=== PATIENT | female | born 1940 | race Caucasian/White ===

== ENCOUNTER 2023-06-10 11:41 | Emergency (ER) | payer BC, MEDICARE ==
[~2023-06-10] VITALS: Ht 157.5 cm; Wt 79.5 kg
[~2023-06-10 11:41] MED LIST: ASPI-1265 PO; CRAN200C PO; CYAN1TAB41 PO; FLAX100031 PO; LISI-230 PO; MELA1TAB73 PO; METO-539 PO; OMEG1CAP54 PO
[2023-06-10 12:54] LABS: BASOPHILS # (AUTO) 0.1 X10'3 (0-0.2); BASOPHILS % (AUTO) 1.2 % (0-1); EOSINOPHILS # (AUTO) 0.2 X10'3 (0-0.9); EOSINOPHILS % (AUTO) 2.4 % (0-6); HEMATOCRIT 32.5 % (35.0-45.0); HEMOGLOBIN 10.6 g/dl (12.0-16.0); LYMPHOCYTES # (AUTO) 2.1 X10'3 (1.1-4.8); LYMPHOCYTES % (AUTO) 27.4 % (21-51); MEAN CORPUSCULAR HEMOGLOBIN 28.8 PG (27.0-31.0); MEAN CORPUSCULAR HGB CONC 32.7 g/dL (33.0-36.5); MEAN CORPUSCULAR VOLUME 88.2 FL (78-98); MEAN PLATELET VOLUME 9.1 FL (7.4-10.4); MONOCYTES # (AUTO) 1.1 X10'3 (0-0.9); MONOCYTES % (AUTO) 14.3 % (2-12); NEUTROPHILS # (AUTO) 4.3 X10'3 (1.8-7.7); NEUTROPHILS % (AUTO) 54.7 % (42-75); PLATELET COUNT 258 X10'3 (140-440); RED BLOOD COUNT 3.69 X10'6 (4.20-5.60); RED CELL DISTRIBUTION WIDTH 14.1 % (11.5-14.5); WHITE BLOOD COUNT 7.8 X10'3 (4.5-11.0)
[2023-06-10 13:16] LABS: ALANINE AMINOTRANSFERASE 25 U/L (12-78); ALBUMIN 3.8 G/DL (3.4-5.0); ALBUMIN/GLOBULIN RATIO 1.2 (1.1-1.5); ALKALINE PHOSPHATASE 52 IU/L (46-116); AMYLASE 70 U/L (25-115); ANION GAP 10 (8-16); ASPARTATE AMINO TRANSFERASE 26 U/L (10-37); BILIRUBIN,TOTAL 0.4 MG/DL (0.1-1.0); BLOOD UREA NITROGEN 31 MG/DL (7-18); BUN/CREATININE RATIO 21.2 (10.0-20.0); CALCIUM 9.4 MG/DL (8.5-10.1); CHLORIDE 104 MMOL/L (99-107); CREATININE 1.46 MG/DL (0.40-0.90); GLUCOSE 106 MG/DL (70-104); LIPASE 46 U/L (16-77); POTASSIUM 4.2 MMOL/L (3.5-5.1); SODIUM 141 MMOL/L (135-145); TOTAL CARBON DIOXIDE 26.8 MMOL/L (24-32); eCRCL 24 ML/MIN; eGFR 34 ML/MIN
[2023-06-10 15:16] VITALS: BP 166/72; PULSE 78; RESP 16; TEMP 98; O2SAT 97
[2023-06-10 15:56] LABS: BILIRUBIN,URINE NEGATIVE (Neg); CLARITY,URINE SLIGHTLY CLOUDY (Clear); COLOR,URINE YELLOW (Yellow); GLUCOSE, URINE NEGATIVE (Neg); KETONES,URINE NEGATIVE (Neg); LEUKOCYTE ESTERASE ,URINE SMALL (Neg); NITRITES, URINE NEGATIVE (Neg); OCCULT BLOOD,URINE NEGATIVE (Neg); PH,URINE 5.5 (4.8-8.0); PROTEIN,URINE NEGATIVE (Neg); UROBILINOGEN,URINE 0.2 E.U/dL (0.2-1.0)
[2023-06-10 16:00] LABS: UA COLLECTION TYPE CLN CATCH MIDSTREAM
[2023-06-10 16:01] LABS: SQUAMOUS EPITHELIAL CELL,UR MANY /LPF (FEW)
[2023-06-10] MEDS ORDERED: OMEP40CA21 PO (16:05)
[2023-06-10 16:06] LABS: BACTERIA,URINE 1+ /HPF (Neg); RBC,URINE NONE SEEN /HPF (0-2)
[2023-06-10] MEDS: LIDOcaine 2% Viscous 15ml cup MM ONE (16:11)
[2023-06-10] MEDS: mag hydrox/Alum hydrox/simeth 30ml oral suspension PO ONE (16:11)
== END 2023-06-10 16:14 | disposition home or self-care (01) ==
LOC: ER 11:42
DX: R10.13 Epigastric pain (principal); E78.00 Pure hypercholesterolemia, unspecified; I10 Essential (primary) hypertension; Z90.49 Acquired absence of other specified parts of digestive tract; Z88.2 Allergy status to sulfonamides
CPT/HCPCS: 36415; 76700; 80053; 81001; 82150; 83690; 85025; 99284

== ENCOUNTER 2024-12-26 01:17 | Observation (INO) | payer BC ==
[2024-12-26] VITALS (11 sets, daily range): BP systolic 105–186; BP diastolic 50–90; PULSE 58–86; RESP 15–16; TEMP 97.8–98.4; O2SAT 93–96
[~2024-12-26] VITALS: Ht 157.5 cm; Wt 79.7 kg
[~2024-12-26 01:17] MED LIST changes: +ASCO500T19 PO; +BENA1TAB19 PO; +EZET10TA80 PO; +HYDR25TA90 PO; +SIMV-42 PO; +UBID100C16 PO; +diltiazem-NS 100mg/100ml 100 ML IV SCH
[2024-12-26] MEDS: diltiazem 5mg/ml 5ml inj. IV ONE ×2 (01:25→02:07)
--- NOTE | 2024-12-26 01:33 | ELECTROCARDIOGRAPH REPORT ---
[facility] Test Date: 2024-12-26 Test Time: 01:29:40 Pat Name: DICKSON ROSAS Department: [facility] Patient ID: [facility]-[id number] Room: [place] [address] Gender: F Community Life Director: : 1940 Requested By: LISA MCLEAN Order Number: [id number] Reading MD: Dr. Gordon Brennan Measurements Intervals [place] Rate: 122 P: -90 AK: 139 QRS: -38 QRSD: 91 T: 0 QT: 333 QTc: 475 Interpretive Statements Ectopic atrial tachycardia, unifocal Left axis deviation Repol abnrm suggests ischemia, diffuse leads Baseline wander in lead(s) V2 Electronically Signed On 12-28-2024 20:44:[address] Gordon Brennan Please click the below link to view image of tracing.
[2024-12-26 01:49] LABS: MEAN PLATELET VOLUME 9.0 FL (7.4-10.4); RED CELL DISTRIBUTION WIDTH 13.4 % (11.5-14.5)
--- NOTE | 2024-12-26 01:50 | RADIOLOGY REPORT ---
CHEST RADIOGRAPH Indication: CP Technique: Single frontal view of the chest was obtained COMPARISON: None FINDINGS: Lines and Tubes: None Lungs: Clear Pleura: No pleural effusion or pneumothorax. Cardiomediastinal contours: Unremarkable Bones: Prior right total shoulder arthroplasty IMPRESSION: No cardiopulmonary abnormality identified.
[2024-12-26 01:55] LABS: CREATININE 1.27 MG/DL (0.40-0.90); PRO BRAIN NATRIURETIC PEPTIDE 501 PG/ML (0-450); TOTAL CARBON DIOXIDE 27.5 MMOL/L (24-32); eCRCL 27 ML/MIN; eGFR 40 ML/MIN
--- NOTE | 2024-12-26 01:55 | Physician Documentation ---
History of Present Illness ~ Chief Complaint: Rapid Heartbeat Stated Complaint: ELEVATED HEART RATE Time Seen by MD: 01:54 Primary Medical Doctor: rhys Mode of Arrival: EMS HPI 84-year-old female presenting with palpitations She tells me that she has a history of high blood pressure, has been on metoprolol, then propranolol, and recently the propranolol was stopped and she was placed on a different blood pressure medication. She has been having trouble with bradycardia with heart rates in the 40s, which is why the medications were changed. Today, she felt like her heart was pounding and going too fast. No syncope. No significant chest pressure pain. No significant current shortness of breath. No leg pain or swelling. No other associated symptoms today. She denies any history of atrial fibrillation. She does state that she has had brief episodes of her heart racing, similar to this but they normally stop on its own. She is not on blood thinners. Medication Reconciliation Allergies: Coded Allergies: Sulfa (Sulfonamide Antibiotics) (Verified Allergy, Unknown, 06/10/23) Uncoded Allergies: SULFA (Allergy, Unknown, 12/21/09) Scheduled Ascorbic Acid/Ascorbate Sodium (Vitamin C 500 mg Tablet Chew), 1 TAB PO DAILY, (Reported) Aspirin (Aspirin), 1 TAB PO DAILY, (Reported) Benazepril/Hydrochlorothiazide (Benazepril-Hctz 20-25 mg Tab), 1 TAB PO DAILY, (Reported) Ezetimibe (Ezetimibe), 1 TAB PO DAILY, (Reported) Hydralazine Hcl* (Apresoline*), 1 TAB PO BID, (Reported) Simvastatin* (Zocor*), 1 TAB PO HS, (Reported) Ubidecarenone (Coq-10), 100 MG PO DAILY, (Reported) Discontinued Medications Cranberry Extract (Cranberry), 168 MG PO HS, (Reported) Discontinued Reason: patient no longer taking Cyanocobalamin/Folic Acid (Vitamin H45-Zzqzz Acid Tablet), 1 EACH PO DAILY, (Reported) Discontinued Reason: patient no longer taking Flaxseed Oil (Flax Seed Oil), 1,000 MG PO DAILY, (Reported) Discontinued Reason: patient no longer taking Lisinopril/Hydrochlorothiazide 10-12.5 Mg* (Lisinopril-Hctz 10-12.5 Mg*), 1 TAB PO DAILY, (Reported) Discontinued Reason: patient no longer taking Lisinopril/Hydrochlorothiazide 10-12.5 Mg* (Lisinopril-Hctz 10-12.5 Mg*), 0.5 TAB PO HS, (Reported) Discontinued Reason: patient no longer taking Melatonin/Pyridoxine Hcl (B6) (Melatonin 10 Mg Tablet), 1 EACH PO HS, (Reported) Discontinued Reason: patient no longer taking Metoprolol Succinate* (Toprol Xl*), 0.5 TAB PO HS, (Reported) Discontinued Reason: patient no longer taking [place]-3 Fatty Acids/Fish Oil (Fish Oil 1,000 Mg Capsule), 1 EACH PO BID, (Reported) Discontinued Reason: patient no longer taking Past Medical History Past Medical History: High Cholesterol, Hypertension Past Surgical History: appendectomy, tonsillectomy Other Past Surgical History: hemorrhoid surgery Alcohol Use: None Drug Use: none Lives In: Home Review of Systems Constitutional: Denies: fever Cardiovascular: Reports: palpitations; Denies: syncope Physical Exam Vital Signs: Temperature: 98.1, Source: Oral, Heart Rate: 122, Respiratory Rate: 14, BP: 188/96, Pulse Oximetry: 96, Weight: 79.650 Physical Exam General: This is a pleasant but mildly anxious appearing older female, at bedside HEENT: Atraumatic, oropharynx is moist Heart: Tachycardic, appears regular, appears likely atrial flutter on the monitor Lungs: Clear breath sounds bilateral, normal work of breathing, normal oxygen saturation on room air Abdomen: Soft, nondistended, nontender all quadrants Extremities: Warm and well-perfused, no significant edema Neuro: Alert and oriented Psychiatric: Appears quite anxious about her condition, but is cooperative with exam Progress Results/Orders Results/Orders Orders - LISA MCLEAN MD Chest,Single View (12/26/24 01:28) Monitor (12/26/24 01:28) Saline Lock (12/26/24:28) Oxygen (12/26/24:28) Page Hospitalist (12/26/24 02:10) Amiodarone/D5 450mg/250ml Bag (Cordarone (12/26/24 02:14) Completed Orders - LISA MCLEAN MD Chest,Single View (12/26/24:28) Cbc/Diff (11/2/25 01:28) BMP (12/26/24 01:28) PBNP (12/26/24 01:28) Electrocardiogram (12/26/24 01:28) Hs Troponin I W Calculations (12/26/24 01:28) Hs Troponin I W Calculations (12/26/24 03:28) Diltiazem Iv (Cardizem Iv 5mg/Ml Inj.) (12/26/24 01:10) Diltiazem-Ns 100mg/100ml (Cardizem-Ns 10 (12/26/24 01:10) Adenosine Inj. (Adenocard Inj.) (12/26/24 01:40) Electrocardiogram (12/26/24 01:48) Diltiazem Iv (Cardizem Iv 5mg/Ml Inj.) (12/26/24 01:23) Amiodarone 150mg/Dext, Iso-Os (Nexterone (12/26/24 02:10) Amiodarone/D5 450mg/250ml Bag (Cordarone (12/26/24 02:10) Medications Received in ER Medications (Trade) Dose Ordered Sig/Abelardo Route PRN Reason Start Time Stop Time Status Last Admin Dose Admin (Cardizem IV 5mg/ ml inj.) 20 mg ONCE ONCE IV 12/26/24 01:10 12/26/24 01:11 DC 12/26/24 01:25 20 MG (Adenocard inj.) 6 mg ONCE ONCE IV 12/26/24 01:40 12/26/24 01:41 DC 12/26/24 02:01 6 MG (morphine inj.) 2 mg Q4H PRN IV severe pain (7-10) 12/26/24 03:40 12/26/24 04:19 2 MG Sodium Chloride 1,000 ml @ 75 mls/hr [id number] IV 12/26/24 03:40 12/26/24 04:18 75 MLS/HR Vital Signs 12/26/24 12/26/24 12/26/24 12/26/24 01:07 01:25 01:29 01:36 Temp 98.1 98.1 Pulse 130 120 122 Resp 13 13 14 B/P (MAP) 184/95 (124) 183/94 188/96 Pulse Ox 96 12/26/24 12/26/24 02:00 03:00 Temp 98.1 98.1 Pulse 121 69 Resp 18 10 B/P (MAP) 184/94 (124) 155/73 (100) Pulse Ox 96 95 Laboratory Tests Test 12/26/24 01:30 12/26/24 01:31 12/26/24 03:39 Sodium Level 141 Potassium Level 3.7 Chloride Level 103 Carbon Dioxide Level 27.5 Anion Gap 11 Blood Urea Nitrogen 27 H Creatinine 1.27 H Estimated GFR/1.73 m2 40 BUN/Creatinine Ratio 21.3 H Glucose Level 126 H Calcium Level 8.9 Troponin I High Sensitivity 62 *H 521 *H Pro-B-Type Natriuretic Peptide 501 H Albumin 4.1 3.5 Chemistry Comments White Blood Count 7.7 Red Blood Count 4.59 Hemoglobin 13.7 Hematocrit 41.0 Mean Corpuscular Volume 89.4 Mean Corpuscular Hemoglobin 29.8 Mean Corpuscular Hemoglobin Concent 33.3 Red Cell Distribution Width 13.4 Platelet Count 253 Mean Platelet Volume 9.0 Neutrophils (%) (Auto) 44.1 Lymphocytes (%) (Auto) 37.8 Monocytes (%) (Auto) 14.1 H Eosinophils (%) (Auto) 2.7 Basophils (%) (Auto) 1.3 H Neutrophils # (Auto) 3.4 Lymphocytes # (Auto) 2.9 Monocytes # (Auto) 1.1 H Eosinophils # (Auto) 0.2 Basophils # (Auto) 0.1 CBC Comment Hemoglobin A1c 5.7 Total Bilirubin 0.6 Direct Bilirubin 0.1 Aspartate Amino Transf (AST/SGOT) 25 Alanine Aminotransferase (ALT/SGPT) 9 L Alkaline Phosphatase 70 Troponin I High Sens Percent Delta 740 Troponin I Hi Sens Absolute Change 459 Total Protein 6.6 Globulin 3.1 Albumin/Globulin Ratio 1.1 Triglycerides Level 67 Cholesterol Level 214 H LDL Cholesterol 137 H HDL Cholesterol 66 H Cholesterol/HDL Ratio 3.2 Thyroid Stimulating Hormone (TSH) 4.22 EKG/XRAY/CT/US/VASC/MRI EKG : Additional Comment I personally interpreted the EKG and this shows: Narrow complex tachycardic, rate 122, QTC 475, ST depressions in the inferior lateral leads Repeat EKG: After amiodarone, the patient did convert to normal sinus rhythm. Rate 70, QTC 439, no STEMI or significant ischemic changes Chest X-Ray : Additional Comments I personally interpreted the x-ray, and it shows: No significant pulmonary edema, mediastinal widening, or pneumothorax Consults/PCP Consults/PCP : Additional Comment Consult: I spoke to the internal medicine service, for admission in the hospital Medical Decision Making Additional information obtaine: N/A Findings na Differential Dx:Considerations: Include: atrial dysrhythmia, atrial fibrillation, atrial flutter, sinus tachycardia, torsades de pointes, ve ntricular fibrillation, ventricular tachycardia Differential Dx:Considerations: Include anxiety/panic attack, Include electrolyte disorder, Include heart failure Additional Information The patient presents with palpitations. She is found to be in a narrow complex tachycardic, that seemed to most likely represent atrial flutter. She has no history of similar. Labs are grossly unremarkable. She was given diltiazem with no improvement. I then gave her a dose of adenosine, which did slow her rate to where I could see the flutter waves. She was admitted to the medicine service for further treatment. She was then given amiodarone specifically for atrial flutter, after which she did convert back to normal sinus rhythm. She will be admitted for further workup and treatment of this new onset atrial flutter. Departure Impression: Primary Impression: Atrial flutter Additional Impression: Palpitations Referrals: NO PRIMARY CARE PROVIDER (PCP) Critical Care Note Critical Care Note Critical Care Note The very real possibility of a deterioration of this patient's condition required the highest level of my preparedness for sudden, emergent intervention. I provided critical care services, which included medication orders, frequent reevaluations of the patient's condition and response to treatment, ordering and reviewing test results, and discussing the case with various consultants. Excludes time spent performing separately billable procedures. The critical care time associated with the care of the patient was 45 minutes in the management of atrial flutter with a rapid rate, requiring multiple IV rate control medications including diltiazem and amiodarone Signature Scribe Signature: na Attestation: LISA Lucero MD Dec 26, 2024 01:55
[2024-12-26] MEDS: adenosine 3mg/ml 2ml vial IV ONE (02:01)
[2024-12-26] MEDS ORDERED: amiodarone/D5 450MG/250ML BAG 250 ML IV SCH (02:10)
[2024-12-26] MEDS: amiodarone 150mg/dext, iso-os 100 ML IV ONE (02:10)
[2024-12-26] MEDS: amiodarone/D5 450MG/250ML BAG 250 ML IV SCH (02:14)
--- NOTE | 2024-12-26 02:46 | ELECTROCARDIOGRAPH REPORT ---
[facility] Test Date: 2024-12-26 Test Time: 02:43:54 Pat Name: DICKSON ROSAS Department: [facility] Patient ID: [facility]-[id number] Room: [place] [address] Gender: F Application Designer: : 1940 Requested By: LISA MCLEAN Order Number: [id number] Reading MD: Dr. Gordon Brennan Measurements Intervals [place] Rate: 70 P: 22 NE: 209 QRS: -10 QRSD: 95 T: 40 QT: 406 QTc: 439 Interpretive Statements Sinus rhythm Atrial premature complex Electronically Signed On 12-28-2024 20:44:[address] Gordon Brennan Please click the below link to view image of tracing.
[2024-12-26] MEDS ORDERED: magnesium Cl slow-release 64mg tablet PO PRN (03:40)
[2024-12-26] MEDS ORDERED: mag hydrox/Alum hydrox/simeth 30ml oral suspension PO PRN (03:40)
[2024-12-26] MEDS ORDERED: potassium Cl 20 mEq SR tablet PO PRN ×2 (03:40)
[2024-12-26] MEDS ORDERED: magnesium sulf-water 2g/50mL 50 ML IV PRN (03:40)
[2024-12-26] MEDS ORDERED: magnesium sulf-water 4G/100mL 100 ML IV PRN (03:40)
[2024-12-26] MEDS ORDERED: potassium Cl 40MEQ/1/2NS 520ml 520 ML IV PRN (03:40)
[2024-12-26] MEDS ORDERED: magnesium hydroxide 30ml (MOM) UD suspension PO PRN (03:40)
--- NOTE | 2024-12-26 04:08 | HISTORY AND PHYSICAL-Residence ---
History & Physical Providers to CC Resident Creating Document: AGUSTIN PRITCHETT, RES ~ History of Present Illness Primary Medical Doctor: rhys Reason for Admit\Complaint: Irregular Heart rate, Hypertensive Emergency, KIMBERLY History of Present Illness 84 years -old female with a history of hypertension, hyperlipidemia, paroxysmal atrial fibrillationand carotid artery stenosis use s/p carotid endarterectomy presented to the ED with complaints of palpitations. She reports experiencing intermittent episodes of palpitations over the past few days, each resolving within minutes. However, on the night of presentation at approximately 10:30 p.m, she experienced a persistent episode that did not subside, prompting her to seek emergency care. Additionally patient endorses mild shortness of breath the present with exertion, she denies any orthopnea/PND/oxygen use it at home She has a 15-year history of paroxysmal AF, previously managed by Dr. Mejia with metoprolol for six months. She also has a history of hypertension, currently managed with two antihypertensive medications, and reports well-controlled blood pressure with systolic readings in the 120s. She denies chest pain,dizziness, syncope, lightheadedness, diaphoresis, nausea, vomiting, or anxiety during the episodes of palpitations. Regarding renal function, the patient denies decreased urine output, hematuria, flank pain, confusion, or swelling. However,she reports experiencing dryness in the mouth ED course:ED course-patient Initially started on diltiazem bolus and diltiazem drip, then given a dose of adenosine and then given a bolus of amiodarone 150 mg and the patient is currently on amiodarone drip patient now converted to sinus rhythm PCP-Dr. Hubbard Health/Safety Job Titles-Dr. Mejia Code-DNR Allergies: Coded Allergies: Sulfa (Sulfonamide Antibiotics) (Verified Allergy, Unknown, 06/10/23) Uncoded Allergies: SULFA (Allergy, Unknown, 12/21/09) Home Medications Home Medications Active Reported Vitamin C 500 mg Tablet Chew (Ascorbic Acid/Ascorbate Sodium) 500 Mg Tab.chew 1 Tab PO DAILY Coq-10 (Ubidecarenone) 100 Mg Capsule 100 Mg PO DAILY Benazepril-Hctz 20-25 mg Tab (Benazepril/HCTZ) 20 Mg-25 Mg Tablet 1 Tab PO DAILY Ezetimibe 10 Mg Tablet 1 Tab PO DAILY Zocor* (Simvastatin) 20 Mg Tablet 1 Tab PO HS Apresoline* (Hydralazine HCl) 25 Mg Tablet 1 Tab PO BID Aspirin 81 Mg Tab.chew 1 Tab PO DAILY Past Medical History Past Medical History Hypertension Paroxysmal atrial fibrillation Hyperlipidemia Carotid artery stenosis s/p carotid endarterectomy Past Surgical History Surgical History Comment Bilateral knee placement Shoulder surgery Appendectomy Past Social History Social History Comment Primary care physician-Dr. Hubbard Health/Safety Job Titles-Dr. Mejia Lives in home with She has a history of secondhand smoking, she drinks alcohol occasionally, she denies any drug use Patient able to ambulate without any assistance in-home, uses walker while gardening Occupation-retired Smoking: Non-Smoker Alcohol Use: None Drug Use: None Lives In: Home ROS Constitutional: Reports: see HPI Eyes: Reports: no symptoms reported ENT: Reports: no symptoms reported Respiratory: Reports: SOB with exertion Cardiovascular: Reports: palpitations Gastrointestinal: Reports: no symptoms reported Genitourinary: Reports: no symptoms reported Female Genitalia: Reports: no reported symptoms Neurological: Reports: no symptoms reported Musculoskeletal: Reports: no symptoms reported Integumentary: Reports: no symptoms reported Allergic/Immunologic: Reports: no symptoms reported Hematologic/Lymphatic: Reports: no symptoms reported Endocrine: Reports: no symptoms reported Psychiatric: Reports: no symptoms reported Exam Vitals: Vital Signs Date Time Temp Pulse Resp B/P (MAP) Pulse Ox O2 Delivery O2 Flow Rate FiO2 12/26/24 01:36 14 12/26/24 01:29 98.1 122 96 General: GENERAL: Awake, alert, oriented. No acute distress. HEENT : Normocephalic, atraumatic, pupils equal and reactive to light, extraocular movements intact, no scleral icterus or conjunctival pallor, nasal mucosa is moist, oral mucosa moist NECK: neck is supple, trachea midline, no lymphadenopathy, no thyromegaly, no JV distention RESPIRATORY: Chest expansion equal bilaterally, breath sounds vesicular, no wheezes, or rhonchi. No use of accessory muscles, no tenderness on palpation. CARDIOVASCULAR: Regular rate and rhythm, Grade 3/6 holosystolic murmur at left upper sternal border, no rubs, or gallops ABDOMEN: Soft, nontender, nondistended, bowel sounds present and normoactive. No organomegaly, no palpable mass, no rebound or guarding NEUROLOGICAL: Alert, oriented, normal memory, speech is normal Cranial nerves II-XII- intact Motor strength 4/5 Sensation-intact in all extremities Reflexes +2 and symmetrical Coordination is intact EXTREMITIES: 1+ Edema on bilateral lower extremity, peripheral pulses felt, no deformities, scoliosis present on examined Psychiatric:Appropriate mood and affect,No hallucinations or suicidal ideation Diagnostic Data Last Recorded Lab Results: 12/26/24 0131 12/26/24 0130 Advance Care Planning Advanced Care plannin - 30 Minutes Additional Plan 84 years old female with past medical history of hypertension, hyperlipidemia, carotid artery stenosis s/p carotid endarterectomy, scoliosis, hiatal hernia, paroxysmal atrial fibrillation he is currently evaluated for narrow complex tachycardia Atrial Fibrillation CHADVASC 7 Type 2 IN possibly 2/2 Afib-patient denies any chest pain-differentials include NSTEMI(which cannt rule out) ED course-patient Initially started on diltiazem bolus and diltiazem drip, then given a dose of adenosine and then given a bolus of amiodarone 150 mg and the patient is currently on amiodarone drip Patient is currently maintaining heart rate 70 with sinus rhythm with regular rate Chest x-ray-ruled out acute cardiopulmonary disease Troponin 62/521 trending up, follow up with serial troponin and EKG Continue amiodarone IV 1 mg/minute drip, Metoprolol 12.5mg, Atorvostatin, Asprine 81mg, Nitroglycerin PRN continuous telemetry Follow up with TSH/HB A1c/lipid panel/echocardiogram Started heparin drip per cardiac protocol, possible cardiac consult am Follow up with daily labs Hypertension Patient takes 2 antihypertensive medication at home Blood pressure-150s to 170, according to the patient her normal blood pressure at home is around 120s Started amlodipine 10 mg p.o. daily-patient refused to take, so start home med hydralazine 25 mg p.o. b.i.d., benazepril/hydrochlorothiazide 20 mg/25 p.o. daily Hold home med benazepril/hydrochlorothiazide 20 mg/25 mg if creatinine is more than 1.57 Hyperlipidemia Started on atorvastatin 40 mg p.o. Continue home med ezetimibe Follow up with lipid panel Acute kidney injury likely vasomotor neuropathy BUN 27, creatinine 1.27, BUN/creatinine 21.3 Started IV fluids 75 mL/hour History of carotid artery stenosis s/p carotid endarterectomy-2007 Continue home med aspirin 81 mg Code Status: DNR DVT prophylaxis: SCDs/heparin drip Analgesia/Sedation: Morphine Line/tube: Peripheral Nutrition: Heart healthy PT: Ordered Prognosis: Guarded Disposition: Patient will be monitored in PCU with telemetry, patient is not complaining any chest pain, follow up with troponin/EKG and we started on heparin drip, consider cardiology consult in a.m. Agustin Pritchett PGY1-Internal Medicine Resident seen with HIPPA compliant a/v technology agree with amio and lovenox Date of Service: Dec 26, 2024 Billing Provider: CORINA BERNAL MD, SATISH, RES Dec 26, 2024 04:08 CORINA BERNAL MD Dec 26, 2024 09:40
[2024-12-26] MEDS: normal saline 1000ml 1,000 ML IV SCH (04:18)
[2024-12-26 04:58] LABS: CHOL/HDL RATIO 3.2 (0.00-4.99); LDL CHOLESTEROL 137 MG/DL (50-100)
[2024-12-26] MEDS: HEPARIN DRIP-CARDIAC**PHARMACIST-TO-DOSE IV ONE (06:25)
[2024-12-26] MEDS ORDERED: heparin 10,000 units/1 ML INJ IV PRN (06:40)
[2024-12-26 07:24] LABS: MEAN PLATELET VOLUME 8.9 FL (7.4-10.4); RED CELL DISTRIBUTION WIDTH 13.2 % (11.5-14.5)
[2024-12-26 07:36] LABS: APTT 26 SECONDS (22-32); INR 1.1 INR
[2024-12-26] MEDS ORDERED: heparin, porcine 5000 units/ml vial SQ SCH ×2 (08:00)
[2024-12-26] MEDS: docusate sod 100mg capsule PO SCH (08:00)
[2024-12-26] MEDS ORDERED: non-formulary drug (Ubidecarenone (Coq-10) 100 MG) PO SCH (08:00)
[2024-12-26] MEDS: K and/or MAG REPLACEMENT MC SCH (08:00)
[2024-12-26] MEDS ORDERED: metoprolol succinate 25mg (24-HOUR) SR. Tablet PO SCH (08:00)
[2024-12-26] MEDS: heparin 10,000 units/1 ML INJ IV ONE (08:07)
[2024-12-26] MEDS: heparin 25,000 UNIT/250ml bag 250 ML IV PRN (08:09)
[2024-12-26] MEDS: MESSAGE TO NURSING IV ONE (08:15)
[2024-12-26] MEDS ORDERED: aminophylline 250mg/10ml inj. IV PRN (11:45)
[2024-12-26] MEDS ORDERED: metoprolol tartrate 1mg/ml inj IV PRN (11:45)
[2024-12-26] MEDS: regadenoson 0.4mg/5ml syringe IV PRN (14:13)
[2024-12-26] MEDS ORDERED: ZALEPLON 10 MG CAPSULE PO PRN (14:45)
[2024-12-26] MEDS: ondansetron/PF 4mg/2ml inj IV PRN (14:54)
--- NOTE | 2024-12-26 14:58 | PROGRESS NOTE- Residence ---
Progress Note - Resident Providers to CC Resident Creating Document: GARRISON CHICAS, RES ~ Antibiotic Timeout Antibiotic Ordered?: No Subjective pt was converted back to sinus this morning, found out that pt has never received amiodarone in ER for some reason although it was ordered. Pt did not show the improvement after the cardizem 20 mg injection one time and she was put on the Metoprolol succinate. However, pt was told to stop her usual prescribed metoprolol at the Dr Pratt's office because of her HR lower down to 30-40s with symptoms of feeling generalized weakness and SOB. She does not have any insight about the Dx of PAfib although she was on the beat hai since she got the symptoms of Afib 15 years back. She requested for the poten sleeping aids since she has not slept over last more than 26 hours because of her anxiety kicking in and environmental disturbance for her light sleep habit. She found to have elevated serial trops which need to counsult with Dr Giacomo Pratt, her reading recovery teacher while pt is on IV Heparin without having any chest pressure pain or discomfort with the stable Vital signs. Objective Vital Signs Date Time Temp Pulse Resp B/P (MAP) Pulse Ox O2 Delivery O2 Flow Rate FiO2 12/26/24 14:19 77 16 146/64 95 Room Air 12/26/24 11:15 97.8 12/26/24 11:03 0 Result Diagram: 12/26/24 0710 12/26/24 0130 Vitals were stable at the moment with temp 98.1 F, MS 79/minute, RR 12/minute, BP 170/80 mm Hg, pulse oximetry 93% on room air. On examination, General: Well alert, well oriented, not confused, not agitated, not in acute distress, well cooperated during the physical. HEENT: Conjunctive are pink, sclerae clear, no icterus, pupil is equal in both sides, reactive to light, no ear discharge, no pharyngeal erythema or an edema, mouth and lips are moist. Neck: Supple, no JVD, no lymphadenopathy and thyromegaly. Lungs:Equal air entry on both lungs, no additional sounds Heart: S1-S2 regular sinus rhythm and, bradycardia, no gallops, no rubs, 2/6 ejection systolic murmur at the aortic area, 3/6 holosystolic murmur radiating to the axilla at the mitral area. Abdomen: No visible peristalsis, Bowel sounds present on auscultation, soft, nontender, no guarding, no rigidity Extremities: No obvious deformities, no pitting edema bilaterally, capillary refill intact, able to wiggle toes both sides, peripheral pulsations are intact on both sides PICTURES EDITOR: No focal neurological deficits, no motor and sensory weakness in all 4 extremities, could move all 4 extremities Musculoskeletal: No joint swelling, deformities, inflammations, and no scoliosis and back tenderness Skin: No active skin lesions and rashes Coagulation Studies Laboratory Tests Test 12/26/24 07:10 Prothrombin Time 11.1 SECONDS (9.0-12.0) INR International Normalized Ratio 1.1 INR Activated Partial Thromboplast Time 26 SECONDS (22-32) Coagulation Comments Assessment Assessment An 84 years old female with past medical history of hypertension, paroxysmal atrial fibrillation with no anticoagulation, hyperlipidemia, carotid artery stenosis s/p , hiatal hernia,/B appendicectomy, s/p hemorrhoidal surgery, s/p bilateral knee replacement surgery, shoulder surgery , scoliosis presented to ER for narrow complex tachycardia. Plan Plan # paroxysmal atrial fibrillation with uncontrolled ventricular rate on no anticoagulation -[id number] score- 4 -Consulted with Dr Dickens and appreciate the consultation, recommended to stop metoprolol and started PO Amiodarone for PAfib. In ER, pt was given Only IV Cardizem 20 mg one time push. Vital stable. -Pt agrees to continue anticoagulation after deeply discussion with the risks including bleeding risk and benefits to prevent the CVA in the future. she denied for frequent GLF, blood dyscrasia. -will need to monitor the LFT and TFT on discharge along with PFT. Her baseline for those are WNL. -Her TSH WNL -prelim 2D echocardiogram showed LVEF 65-70%, RVSP 58 mm Hg, severely dilated LA, moderate MR, mild TR, normal pericardium and no effusion. # NSTEMI -her serial Trops were [phone], no active chest pain/pressure/discomfort. Vitals were stable -EKG shows narrow complex tachycardia with some ST depression in inferior leads -pt was put on IV Heparin -discussed with the risks including possible kidney injury, and benefits of NM Celina scan to exclude out the possible NSTEMI after discussion and informed the possible NSTEMI with all serial elevated troponin levels -pt agrees to undergo the NM stress test -continue hydration and mindful monitoring for RFT and I's and o's -we could not calculate ASCVD risk because of her age is 84 years old # CKD stage III -age appropriate CKD -baseline cr was 1.46 a year ago -I's and o's, monitor rate of EGFR declining with time # Hypertension # Hyperlipidemia # Class I obeisty with BMI 32.1 -HGB A1c 5.7 -continue her home medication simvastatin and ezitemibe for her LDL 137 -blood pressure is not very well-controlled with the three different antihypertensive medications -continue her home medications including lisinopril CODE STATUS: DNR DVT prophylaxis: P.o. Eliquis Analgesia/sedation: IV morphine Lines/tubes: PIV GI prophylaxis: Famotidine Nutrition: Heart healthy Prognosis: Guarded Disposition: Continue medical management, stopped the heparin replace with p.o. Eliquis if stress test negative, control the heart rate and continuous telemetry monitoring, continue p.o. amiodarone and control the blood pressure, possible discharge tomorrow and PT eval. Resident attestation: Patient was seen, examined and discussed with attending MD, Dr. Joseph CHICAS MD Internal Medicine Resident, PGY3 [facility] Date of Service: Dec 26, 2024 Billing Provider: BREANN GARÍCA MD, TIN, RES Dec 26, 2024 14:57
--- NOTE | 2024-12-26 15:40 | RADIOLOGY REPORT ---
CLINICAL INFORMATION: Elevated troponins. EKG changes. Chest pain. TECHNIQUE: 7.4 mCi of technetium 99m sestamibi was infused at rest. Rest SPECT imaging was obtained. Routine protocol for Lexiscan stress study was performed with 0.4 mg of Lexiscan. 32.0 mCi of technetium 99m sestamibi was infused. Stress SPECT imaging was obtained. COMPARISON: None FINDINGS: Resting heart rate of 63 BPM increased to maximum rate of 89 BPM. Resting blood pressure of 186/90, also 186/90 with stress. There were no significant ST-T wave EKG changes. There was no chest pain. There is no evidence of stress induced ischemia or stress dilatation of the left ventricle. TID ratio is 1.05. Calculated left ventricular ejection fraction is 81%. IMPRESSION: 1. No evidence of stress-induced ischemia. 2. Left ventricular ejection fraction is 81%.
--- NOTE | 2024-12-26 17:44 | CARDIOLOGY REPORT ---
APPROVED REPORT EXAM: Comprehensive 2D, Doppler, and color-flow Echocardiogram. Patient Location: ED 4 Blood Pressure: 166/86 mmHg Heart Rate: 70's bpm Rhythm: SINUS Indications ARRHYTHMIA HYPERTENSION ATRIAL FIBRILLATION SHORTNESS OF BREATH Station Baggage Porter: Ezra Mejia MD Previous echo: NONE AVAILABLE (AFTER HOURS) 2D Dimensions IVSd 0.9 (0.7-1.1cm) LVDd 4.2 cm PWd 0.9 (0.7-1.1cm) IVSs 1.2 (0.8-1.2cm) LVDs 2.8 (2.5-4.0cm) PWs 1.3 (0.8-1.2cm) LVOT Diameter 1.90 (1.8-2.4cm) LVEF(%) 62.1 (>50%) FS (%) 33.1 % SV 47.8 ml CO 3.6 L/min M-Mode Dimensions Left Atrium(MM) 5.64 (2.5-4.0cm) Aortic Root 2.71 (2.2-3.7cm) Aortic Valve AoV Peak Nima. 309.6 cm/s AoV VTI 61.8 cm AO Peak GR. 38.3 mmHg AO Mean GR. 22 mmHg LVOT VTI 27.54 cm LVOT Peak Nima. 158.7 cm/s RONI(VTI)/BSA 1.26 cm2/m2 RONI (VTI) 1.26 cm2 AV DI 0.45 % Mitral Valve MV E Velocity 112.0 cm/s MV Peak Gr. 7 mmHg MV DECEL TIME 168 ms MV A Velocity 61.3 cm/s MV PHT 68 ms E/A Ratio 1.8 MVA (PHT) 3.24 cm2 MV VMax 133.8 cm/s Tricuspid Valve TR P. Velocity 348 cm/s RAP ESTIMATE 10 mmHg TR Peak Gr. 48 mmHg RVSP 58 mmHg LEFT VENTRICLE Normal LV size and wall thickness. Overall systolic function is normal. LVEF is 65-70%. RIGHT VENTRICLE RV appears normal in size and function. Elevated right heart pressures with an RVSP of 58 mmHg ATRIA Left atrium is severely dilated. AORTIC VALVE Functionally bicuspid AV appears moderately sclerotic with moderate stenosis. RONI: 1.26 cmsq; Pkv: 310 cm/sec; Gradients: 38/22 mmHG. No insufficiency. MITRAL VALVE Mild MV annular calcification without stenosis. Moderate regurgitation. TRICUSPID VALVE TV appears structurally normal with mild regurgitation. PULMONIC VALVE Normal PV without stenosis, physiologic insufficiency. GREAT VESSELS The aortic root is normal in size. PERICARDIUM Normal pericardium. No effusion. Other Information Study Quality: Fair Conclusion Normal LV size and wall thickness. Overall systolic function is normal. LVEF is 65-70%. RV appears normal in size and function. Elevated right heart pressures with an RVSP of 58 mmHg Left atrium is severely dilated. Functionally bicuspid AV appears moderately sclerotic with moderate stenosis. RONI: 1.26 cmsq; Pkv: 310 cm/sec; Gradients: 38/22 mmHG. No insufficiency. Mild MV annular calcification without stenosis. Moderate regurgitation. TV appears structurally normal with mild regurgitation. Normal pericardium. No effusion.
[2024-12-27 02:00] VITALS: BP 121/58; PULSE 54; RESP 13; TEMP 97.2; O2SAT 94
[2024-12-27 05:57] LABS: MEAN PLATELET VOLUME 9.5 FL (7.4-10.4); RED CELL DISTRIBUTION WIDTH 13.6 % (11.5-14.5)
[2024-12-27 06:00] VITALS: BP 126/59; PULSE 61; RESP 16; TEMP 97.2; O2SAT 96
[2024-12-27 06:11] LABS: CREATININE 1.07 MG/DL (0.40-0.90); TOTAL CARBON DIOXIDE 27.5 MMOL/L (24-32); eCRCL 32 ML/MIN; eGFR 49 ML/MIN
[2024-12-27 08:00] VITALS: RESP 16; O2SAT 96
[2024-12-27] MEDS: amiodarone 100mg tablet PO SCH (08:54)
[2024-12-27 11:00] VITALS: BP 144/64; PULSE 66; RESP 19; TEMP 98; O2SAT 96
[2024-12-27] MEDS ORDERED: APIX5TAB3 PO (16:55)
[2024-12-27] MEDS ORDERED: AMIO200T73 PO (16:55)
[2024-12-27] MEDS ORDERED: NOR5T PO (16:55)
--- NOTE | 2024-12-27 18:08 | CONSULTATION REPORT ---
History of Present Illness Providers to CC ~ Reason for Admit\Admit Dx: Cardiology consultation Refering MD: rhys History of Present Illness Patient presented secondary to her blood pressure being elevated and her heart rate being elevated. Her initial EKG showed atrial fibrillation with rapid ventricular response. She was converted however with adenosine. She has a history of hypertension. Her primary has been attempting to adjust her antihypertensives. She was started on propranolol 80 mg and was subsequently bradycardic. This was discontinued. She had been on amlodipine in the past and developed pedal edema. Otherwise, she is on benazepril/hydrochlorothiazide and was recently started on hydralazine 25 mg b.i.d. last week. Her heart rate is well controlled. Underwent a stress test secondary to elevated troponins that was negative for ischemia. She we will follow with Dr. Mejia for antihypertensive therapy adjustments. Allergies: Coded Allergies: Sulfa (Sulfonamide Antibiotics) (Verified Allergy, Unknown, 06/10/23) Uncoded Allergies: SULFA (Allergy, Unknown, 12/21/09) Home Medications Home Medications Active Amiodarone HCl 200 Mg Tablet 1 Tab PO DAILY 30 Days Eliquis (Apixaban) 5 Mg Tablet 5 Mg PO BID 30 Days Reported Vitamin C 500 mg Tablet Chew (Ascorbic Acid/Ascorbate Sodium) 500 Mg Tab.chew 1 Tab PO DAILY Coq-10 (Ubidecarenone) 100 Mg Capsule 100 Mg PO DAILY Benazepril-Hctz 20-25 mg Tab (Benazepril/HCTZ) 20 Mg-25 Mg Tablet 1 Tab PO DAILY Ezetimibe 10 Mg Tablet 1 Tab PO DAILY Zocor* (Simvastatin) 20 Mg Tablet 1 Tab PO HS Apresoline* (Hydralazine HCl) 25 Mg Tablet 1 Tab PO BID Aspirin 81 Mg Tab.chew 1 Tab PO DAILY Past Medical History Medical History Comment Hypertension Questionable history of paroxysmal atrial fibrillation. Patient denies. Hyperlipidemia Carotid artery stenosis with history of endarterectomy Past Surgical History Surgical History Comment Orthopedic Endarterectomy Appendectomy Physical Exam Last Vital Signs Recorded: RN Vital Signs have been reviewed: Yes, Temperature: 98.0, Source: Oral, Heart Rate: 66, Respiratory Rate: 19, BP: 144/64, Pulse Oximetry: 96, Weight: 79.650 Physical Exam General: Awake, alert, oriented. No apparent distress Neck: Supple. Normal range of motion. No JVD Respiratory: Lungs are clear to auscultation bilaterally. No respiratory distress. Chest: Normal shape and size. No accessory muscle use. Cardiovascular: Regular rate and rhythm. S1-S2. II/ Roseanna. No gallop, rub. Gastrointestinal: Abdomen is soft. Nontender to palpation. Bowel sounds present. Extremities: No lower extremity edema, cyanosis or clubbing. Neurologic: Alert and oriented x4. Nonfocal Psychiatric: Normal mood and affect. Skin: Normal color. Warm and dry. Review of Systems ROS Review of systems negative except documented in HPI Results Echocardiogram Echocardiogram Conclusion Normal LV size and wall thickness. Overall systolic function is normal. LVEF is 65-70%. RV appears normal in size and function. Elevated right heart pressures with an RVSP of 58 mmHg Left atrium is severely dilated. Functionally bicuspid AV appears moderately sclerotic with moderate stenosis. RONI: 1.26 cmsq; Pkv: 310 cm/sec; Gradients: 38/22 mmHG. No insufficiency. Mild MV annular calcification without stenosis. Moderate regurgitation. TV appears structurally normal with mild regurgitation. Normal pericardium. No effusion. Dictated by:GEORGE EMANUEL MD Dictation date and time:12/26/24 5756 Cardiac Stress Test Cardiac Stress Test Ordering Physician: GARRISON CHICAS Exam: NM YASMIN SCAN CLINICAL INFORMATION: Elevated troponins. EKG changes. Chest pain. TECHNIQUE: 7.4 mCi of technetium 99m sestamibi was infused at rest. Rest SPECT imaging was obtained. Routine protocol for Lexiscan stress study was performed with 0.4 mg of Lexiscan. 32.0 mCi of technetium 99m sestamibi was infused. Stress SPECT imaging was obtained. COMPARISON: None FINDINGS: Resting heart rate of 63 BPM increased to maximum rate of 89 BPM. Resting blood pressure of 186/90, also 186/90 with stress. There were no significant ST-T wave EKG changes. There was no chest pain. There is no evidence of stress induced ischemia or stress dilatation of the left ventricle. TID ratio is 1.05. Calculated left ventricular ejection fraction is 81%. IMPRESSION: 1. No evidence of stress-induced ischemia. 2. Left ventricular ejection fraction is 81%. Electronically Signed by:TANK SANCHEZ DO Date & Time: 12/26/24 1537 Diagram Lab Result Diagram: 12/27/24 0520 12/27/24 0520 Assessment/Plan Additional Plan Patient presented secondary to palpitations and hypertension. The following is her problem list: Paroxysmal atrial fibrillation EKG from EMS was reviewed that did show atrial fibrillation. Converted after adenosine and Cardizem per residency Service. Started on amiodarone and oral anticoagulation We will follow up outpatient. She will keep follow up for event monitor Hypertension Blood pressure has been elevated. We will follow up in the clinic. For now, she will continue her home medications. Case discussed with Dr. Giacomo Mejia who is in agreement with this plan. Supervising MD Supervising Physician: REX Dang NP Dec 27, 2024 18:08
--- NOTE | 2024-12-27 19:51 | DISCHARGE SUMMARY-Residence ---
Discharge Summary Providers to CC Resident Creating Document: GARRISON CHICAS, IZA ~ Discharge Summary Admission Diagnosis: IRREGULAR HEART RATE Hospital Course DATE OF ADMISSION: DATE OF DISCHARGE: Discharge Diagnosis\Comment: # paroxysmal atrial fibrillation with uncontrolled ventricular rate on no anticoagulation, cardioverted # NSTEMI, excluded out ACS with a negative Lexiscan # CKD stage III # Hypertension # Hyperlipidemia # Class I obeisty with BMI 32.1 Operations\Procedures: MS cardiac Lexiscan Consultants: Dr. Giacomo Mejia Complications: None Condition on DC: Stable New Medications: Amiodarone HCl (Amiodarone HCl) 200 Mg Tablet 1 TAB PO DAILY for 30 Days, #30 TAB 0 Refills Apixaban (Eliquis) 5 Mg Tablet 5 MG PO BID for 30 Days, #60 TAB Continued Medications: Ascorbic Acid/Ascorbate Sodium (Vitamin C 500 mg Tablet Chew) 500 Mg Tab.chew 1 TAB PO DAILY Aspirin (Aspirin) 81 Mg Tab.chew 1 TAB PO DAILY, TAB.CHEW Benazepril/Hydrochlorothiazide (Benazepril-Hctz 20-25 mg Tab) 20 Mg-25 Mg Tablet 1 TAB PO DAILY, TAB 0 Refills Ezetimibe (Ezetimibe) 10 Mg Tablet 1 TAB PO DAILY Hydralazine Hcl* (Apresoline*) 25 Mg Tablet 1 TAB PO BID Simvastatin* (Zocor*) 20 Mg Tablet 1 TAB PO HS Ubidecarenone (Coq-10) 100 Mg Capsule 100 MG PO DAILY, CAP Discharge Summary: An 84 years old female with past medical history of hypertension, paroxysmal atrial fibrillation with no anticoagulation, hyperlipidemia, carotid artery stenosis s/p , hiatal hernia,/B appendicectomy, s/p hemorrhoidal surgery, s/p bilateral knee replacement surgery, shoulder surgery , scoliosis presented to ER for narrow complex tachycardia. Hospital course: Patient was given IV adenosine, IV diltiazem push followed by drip and p.o. metoprolol in ER but metoprolol was stopped because of her sinus bradycardia. She converted back to sinus rhythm on next day of admission after we started p.o. amiodarone 100 mg daily as an initial medication. She agrees to continue anticoagulation for her [id number] score- 4 after deeply discussion with the risks including bleeding risk and benefits to prevent the CVA in the future. she denied for frequent GLF, blood dyscrasia. TSH WNL, and 2D echocardiogram showed LVEF 65-70%, RVSP 58 mm Hg, severely dilated LA, moderate MR, mild TR, normal pericardium and no effusion. Her serial Trops were [phone], no active chest pain/pressure/discomfort. Vitals were stable. EKG shows narrow complex tachycardia with some ST depression in inferior leads. Patient was put on IV heparin drip and underwent NM cardiac stress test on 12/26/2024 to rule out ACS which showed 1. No evidence of stress-induced ischemia. 2. Left ventricular ejection fraction is 81%. HGB A1c 5.7, we continued her home medication simvastatin and ezitemibe for her LDL 137. Her blood pressure was not very well-controlled with the three different antihypertensive medications which was converted to lisinopril, amlodipine, and hydralazine during hospitalization. All of her home medications were reconciled inappropriately continue during hospitalization. Cardiology consulted the patient for high blood pressure and type 2 RI with elevated serial troponin levels which showed negative Lexiscan. Cardiology we will be following the patient in outpatient setting to adjust medications. All of the patient's questions and concerns were addressed with the best knowledge of our team before she was discharged back home today. All of her vitals were stable at the moment with temp 98 F, MI 66/minute, RR 90/minute, BP 150/67 mm Hg, pulse oximetry 96% on room air. On examination, General: Well alert, well oriented, not confused, not agitated, not in acute distress, well cooperated during the physical. HEENT: Conjunctive are pink, sclerae clear, no icterus, pupil is equal in both sides, reactive to light, no ear discharge, no pharyngeal erythema or an edema, mouth and lips are moist. Neck: Supple, no JVD, no lymphadenopathy and thyromegaly. Lungs:Equal air entry on both lungs, no additional sounds Heart: S1-S2 regular sinus rhythm and, bradycardia, no gallops, no rubs, 2/6 ejection systolic murmur at the aortic area, 3/6 holosystolic murmur radiating to the axilla at the mitral area. Abdomen: No visible peristalsis, Bowel sounds present on auscultation, soft, nontender, no guarding, no rigidity Extremities: No obvious deformities, no pitting edema bilaterally, capillary refill intact, able to wiggle toes both sides, peripheral pulsations are intact on both sides MIDDLE SCHOOL TECHNOLOGY TEACHER: No focal neurological deficits, no motor and sensory weakness in all 4 extremities, could move all 4 extremities Musculoskeletal: No joint swelling, deformities, inflammations, and no scoliosis and back tenderness Skin: No active skin lesions and rashes Labs: Laboratory Tests Test 12/26/24 01:30 12/26/24 01:31 12/26/24 03:39 12/26/24 07:10 Sodium Level 141 MMOL/L Potassium Level 3.7 MMOL/L Chloride Level 103 MMOL/L Carbon Dioxide Level 27.5 MMOL/L Anion Gap 11 Blood Urea Nitrogen 27 MG/DL Creatinine 1.27 MG/DL Estimated GFR/1.73 m2 40 ML/MIN BUN/Creatinine Ratio 21.3 Glucose Level 126 MG/DL Calcium Level 8.9 MG/DL Troponin I High Sensitivity 62 ng/L 521 ng/L 676 ng/L Pro-B-Type Natriuretic Peptide 501 PG/ML Albumin 4.1 G/DL 3.5 G/DL Chemistry Comments White Blood Count 7.7 X10'3 8.1 X10'3 Red Blood Count 4.59 X10'6 4.40 X10'6 Hemoglobin 13.7 g/dl 13.1 g/dl Hematocrit 41.0 % 39.4 % Mean Corpuscular Volume 89.4 FL 89.7 FL Mean Corpuscular Hemoglobin 29.8 PG 29.8 PG Mean Corpuscular Hemoglobin Concent 33.3 g/dL 33.2 g/dL Red Cell Distribution Width 13.4 % 13.2 % Platelet Count 253 X10'3 255 X10'3 Mean Platelet Volume 9.0 FL 8.9 FL Neutrophils (%) (Auto) 44.1 % 53.3 % Lymphocytes (%) (Auto) 37.8 % 32.3 % Monocytes (%) (Auto) 14.1 % 12.7 % Eosinophils (%) (Auto) 2.7 % 0.7 % Basophils (%) (Auto) 1.3 % 1.0 % Neutrophils # (Auto) 3.4 X10'3 4.3 X10'3 Lymphocytes # (Auto) 2.9 X10'3 2.6 X10'3 Monocytes # (Auto) 1.1 X10'3 1.0 X10'3 Eosinophils # (Auto) 0.2 X10'3 0.1 X10'3 Basophils # (Auto) 0.1 X10'3 0.1 X10'3 CBC Comment Hemoglobin A1c 5.7 % Total Bilirubin 0.6 MG/DL Direct Bilirubin 0.1 MG/DL Aspartate Amino Transf (AST/SGOT) 25 U/L Alanine Aminotransferase (ALT/SGPT) 9 U/L Alkaline Phosphatase 70 IU/L Troponin I High Sens Percent Delta 740 % 29 % Troponin I Hi Sens Absolute Change 459 ng/L 155 ng/L Total Protein 6.6 G/DL Globulin 3.1 G/DL Albumin/Globulin Ratio 1.1 Triglycerides Level 67 MG/DL Cholesterol Level 214 MG/DL LDL Cholesterol 137 MG/DL HDL Cholesterol 66 MG/DL Cholesterol/HDL Ratio 3.2 Thyroid Stimulating Hormone (TSH) 4.22 ulU/ml Prothrombin Time 11.1 SECONDS INR International Normalized Ratio 1.1 INR Activated Partial Thromboplast Time 26 SECONDS Coagulation Comments Test 12/26/24 08:39 12/26/24 15:28 12/27/24 05:20 Troponin I High Sensitivity 640 ng/L Troponin I High Sens Percent Delta 5 % Troponin I Hi Sens Absolute Change -36 ng/L APTT (Heparin Protocol) 97 SECONDS Coagulation Comments White Blood Count 6.3 X10'3 Red Blood Count 3.89 X10'6 Hemoglobin 11.9 g/dl Hematocrit 35.1 % Mean Corpuscular Volume 90.4 FL Mean Corpuscular Hemoglobin 30.6 PG Mean Corpuscular Hemoglobin Concent 33.8 g/dL Red Cell Distribution Width 13.6 % Platelet Count 223 X10'3 Mean Platelet Volume 9.5 FL Neutrophils (%) (Auto) 54.2 % Lymphocytes (%) (Auto) 29.3 % Monocytes (%) (Auto) 13.2 % Eosinophils (%) (Auto) 2.3 % Basophils (%) (Auto) 1.0 % Neutrophils # (Auto) 3.4 X10'3 Lymphocytes # (Auto) 1.8 X10'3 Monocytes # (Auto) 0.8 X10'3 Eosinophils # (Auto) 0.1 X10'3 Basophils # (Auto) 0.1 X10'3 CBC Comment Sodium Level 139 MMOL/L Potassium Level 4.1 MMOL/L Chloride Level 105 MMOL/L Carbon Dioxide Level 27.5 MMOL/L Anion Gap 7 Blood Urea Nitrogen 17 MG/DL Creatinine 1.07 MG/DL Estimated GFR/1.73 m2 49 ML/MIN BUN/Creatinine Ratio 15.9 Glucose Level 94 MG/DL Calcium Level 8.2 MG/DL Total Bilirubin 0.9 MG/DL Aspartate Amino Transf (AST/SGOT) 25 U/L Alanine Aminotransferase (ALT/SGPT) 19 U/L Alkaline Phosphatase 62 IU/L Total Protein 5.9 G/DL Albumin 3.2 G/DL Globulin 2.7 G/DL Albumin/Globulin Ratio 1.2 Chemistry Comments Discharge instructions: - immediate return to ER for emergency conditions including intolerable chest pressure/discomfort/pain, lightheadedness dizziness, loss of consciousness episodes, severe progressive rapid heartbeat feeling, etc. -continue following up with Dr. Mejia in one week after discharge for medication adjustment for high blood pressure and atrial fibrillation -please be compliance with oral Eliquis/blood thinners to prevent stroke in the future -control the blood pressure with a modified lifestyle including dash diet and heart healthy diet along with possible weight loss and modify active lifestyle including moderate exercising. Resident MD attestation: Patient was seen, examined and discussed with attending MD, Dr. Joseph CHICAS MD Internal Medicine Resident, PGY3 [facility] *Problems/Diagnosis: (1) Atrial fibrillation Status: Resolved Total Time Spent on D/C: > 30 Minutes Date of Service: Dec 27, 2024 Billing Provider: BREANN GARCÍA MD, TIN, RES Dec 27, 2024 19:50
== END 2024-12-27 17:35 | disposition home or self-care (01) ==
LOC: ER 01:18 → ED HOLD 03:42 → INTOOBSV 03:42 → PCU 3S 11:12
PROVIDERS: ADMIT Internal Medicine; ATTEND Family Medicine
DX: I21.4 Non-ST elevation (NSTEMI) myocardial infarction (principal); I48.0 Paroxysmal atrial fibrillation; R00.1 Bradycardia, unspecified; R00.2 Palpitations; R79.89 Other specified abnormal findings of blood chemistry; R60.0 Localized edema; I65.29 Occlusion and stenosis of unspecified carotid artery; E78.00 Pure hypercholesterolemia, unspecified; I12.9 Hypertensive chronic kidney disease with stage 1 through stage 4 chronic kidney disease, or unspecified chronic kidney disease; N18.30 Chronic kidney disease, stage 3 unspecified; E66.9 Obesity, unspecified; Z68.32 Body mass index [BMI] 32.0-32.9, adult; Z79.899 Other long term (current) drug therapy; Z98.890 Other specified postprocedural states; Z90.49 Acquired absence of other specified parts of digestive tract
CPT/HCPCS: 36415; 71045; 78452; 80048; 80053; 80061; 80076; 83036; 83880; 84443; 84484; 85025; 85610; 85730; 87081; 93005; 93017; 93306; 96361; 96365; 96366; 96375; 96376; 99291; A9500; G0378; J0153; J1644; J2270; J2405; J2785; J3490; J7030